=== PATIENT | female | born 1960 | race Caucasian/White ===

== ENCOUNTER → 2017-01-10 | Outpatient (CLI) | payer OTHER | LOC: FIMAGING 11:10 | PROVIDERS: ATTEND Obstetrics & Gynecology | DX: Z12.31 Encounter for screening mammogram for malignant neoplasm of breast (principal) | CPT/HCPCS: G0202 ==

== ENCOUNTER 2017-12-05 17:41 | Inpatient (IN) | payer OTHER ==
--- NOTE | 2017-12-05 18:15 | EDPHY ---
H & P Stated Complaint: abd bloating, dizziness, low hct (blood drawn today) Time Seen by Provider: 12/05/17 17:53 HPI/ROS: CHIEF COMPLAINT: Dizzy, fatigue, anemia HISTORY OF PRESENT ILLNESS: 57-year-old female generally healthy, history of chronic headaches for which she takes 3 daily Excedrin. She saw her primary care provider 2 weeks ago for complaints of fatigue, blood work performed that time prior to go on a trip to [facility]. While in [facility] she received a phone call for PCP informing her of her anemia and is recommended when she return to go to the ER for evaluation. She returned from her trip to [facility] last evening, saw her PCP this morning had repeat hemogram which showed continued anemia, recheck 6 hr later and had dropped. Recommend she go to the ER for evaluation, transfusion, admission. While in [facility] she go she did not experience illness. She does report intermittent episodes of melena and hematochezia. Painless defecation. She notes ongoing fatigue, dizziness, sleeping more than usual, dyspnea, for the past several weeks. No chest pain. No abdominal pain. No back pain. No hematuria. No gingival bleeding. PRIMARY CARE PROVIDER: Dr. Marcos Brown REVIEW OF SYSTEMS: A ten point review of systems was performed and is negative with the exception of the items mentioned in the HPI PAST MEDICAL & SURGICAL HISTORY: Chronic headache SOCIAL HISTORY:, 2 children. PHYSICAL EXAM (Prior to examination, patient consented to physical exam, hands were washed and my usual and customary physical exam procedures followed) 1) GENERAL: Well-developed, well-nourished, alert and oriented. Pallorous answering questions appropriately 2) HEAD: Normocephalic, atraumatic 3) HEENT: Pupils equal, round, reactive to light bilaterally. Sclera anicteric. Nasopharynx, oropharynx, clear, no lesions. Pallorous mucous membranes 4) NECK: Full range of motion, no meningeal signs. 5) LUNGS: Clear auscultation bilaterally, no wheezes, no rhonchi, no retractions. 6) HEART: Regular rate and rhythm, no murmur, no heave, no gallop. 7) ABDOMEN: No guarding, no rebound, no focal tenderness, negative McBurney's, negative Sanchez's, negative Rovsing's, negative peritoneal sign, 8) MUSCULOSKELETAL: Moving all extremities, no focal areas of tenderness, no obvious trauma. No peripheral edema or discoloration. 9) BACK: No CVA tenderness, no midline vertebral tenderness, no fluctuance, no step-off, no obvious trauma, no visual or palpable abnormality. 10) SKIN: No rash, no petechiae. 11) RECTAL (with tech Jessica at bedside): Multiple non thrombosed external hemorrhoid, Hard stool in rectal vault, brown stool on glove. DIFFERENTIAL DIAGNOSIS: In no particular include but limited to upper GI bleed , lower GI bleed, hemorrhoids, anemia - Personal History Current Tetanus/Diphtheria Vaccine: Unsure Current Tetanus Diphtheria and Acellular Pertussis (TDAP): Unsure - Medical/Surgical History Hx Asthma: No Hx Chronic Respiratory Disease: No Hx Diabetes: No Hx Cardiac Disease: No Hx Renal Disease: No Hx Cirrhosis: No Hx Alcoholism: No Hx HIV/AIDS: No Hx Splenectomy or Spleen Trauma: No Other PMH: Hemorroids - Social History Smoking Status: Former smoker Constitutional: Initial Vital Signs Temperature (C) 36.7 C 12/05/17 17:47 Heart Rate 86 12/05/17 17:47 Respiratory Rate 16 12/05/17 17:47 Blood Pressure 120/77 12/05/17 17:47 O2 Sat (%) 96 12/05/17 17:47 O2 Delivery Mode Room Air Allergies/Adverse Reactions: codeine Allergy (Verified 12/05/17 19:23) Rash, Itching Home Medications: Medication Instructions Recorded Acetaminophen/ASA/Caffeine 3 - 4 each PO DAILY 12/05/17 [Excedrin Tablet (*)] Albuterol [Ventolin Hfa Inhaler] 2 puffs IH Q4 PRN 12/05/17 Bisacodyl [Bisacodyl (*)] 5 mg PO TID PRN 12/05/17 Cetirizine HCl/Pseudoephedrine 1 each PO DAILY PRN 12/05/17 [Zyrtec-D Tablet] Cetirizine [ZyrTEC 10 mg (*)] 20 mg PO HS 12/05/17 FLUoxetine [Prozac 20 MG (*)] 40 mg PO DAILY 12/05/17 Herbals/Supplements -Info Only 1 ea PO DAILY 12/05/17 Medical Decision Making - Diagnostics Imaging Results: Imaging Impressions Chest X-Ray 12/05/17 18:12 Impression: No acute pulmonary disease. ED Course/Re-evaluation: 6:12 p.m.: Medical records reviewed the patient. Discussed case with secondary supervising physician Dr. Reeder in the ER. Plan will be admission, type and screen, transfusion, evaluation for possible GI bleed. Patient has history of daily Excedrin use for chronic headache. 6:50 p.m.: Consultation with hospitalist Dr. Jurado who will admit patient for symptomatic anemia, possible GI bleed - Data Points Laboratory Results: Laboratory Results 12/05/17 18:00 12/05/17 18:00 12/05/17 12/05/17 12/05/17 18:00 18:00 18:00 WBC RBC Hgb Hct MCV MCH MCHC RDW Plt Count MPV Neut % (Auto) Lymph % (Auto) Upson % (Auto) Eos % (Auto) Baso % (Auto) Nucleat RBC Rel Count Absolute Neuts (auto) Absolute Lymphs (auto) Absolute Monos (auto) Absolute Eos (auto) Absolute Basos (auto) Absolute Nucleated RBC Immature Gran % Immature Gran # Platelet Estimate Hypochromasia Microcytic Cells Smear Review By Sodium 136 mEq/L mEq/L (135-145) Potassium 3.3 mEq/L mEq/L (3.3-5.0) Chloride 99 mEq/L mEq/L (97-110) Carbon Dioxide 27 mEq/l mEq/l (22-31) Anion Gap 10 mEq/L mEq/L (8-16) BUN 14 mg/dL mg/dL (7-23) Creatinine 0.8 mg/dL mg/dL (0.6-1.0) Estimated GFR > 60 Glucose 90 mg/dL mg/dL (70-100) Calcium 9.7 mg/dL mg/dL (8.5-10.4) Troponin I < 0.012 ng/mL ng/mL (0.000-0.034) TSH 3.600 uIU/mL uIU/mL (0.465-4.680) Stool Occult Bld Scrn NEGATIVE (NEGATIVE) Patient ABO/Rh O POSITIVE Antibody Screen NEGATIVE Crossmatch IS Only See Detail 12/05/17 18:00 WBC 6.46 10^3/uL 10^3/uL (3.80-9.50) RBC 3.68 10^6/uL L 10^6/uL (4.18-5.33) Hgb 6.3 g/dL L g/dL (12.6-16.3) Hct 24.3 % L % (38.0-47.0) MCV 66.0 fL L fL (81.5-99.8) MCH 17.1 pg L pg (27.9-34.1) MCHC 25.9 g/dL L g/dL (32.4-36.7) RDW 20.0 % H % (11.5-15.2) Plt Count 425 10^3/uL H 10^3/uL (150-400) MPV 9.5 fL fL (8.7-11.7) Neut % (Auto) 59.4 % % (39.3-74.2) Lymph % (Auto) 28.0 % % (15.0-45.0) Upson % (Auto) 8.4 % % (4.5-13.0) Eos % (Auto) 3.4 % % (0.6-7.6) Baso % (Auto) 0.6 % % (0.3-1.7) Nucleat RBC Rel Count 0.0 % % (0.0-0.2) Absolute Neuts (auto) 3.84 10^3/uL 10^3/uL (1.70-6.50) Absolute Lymphs (auto) 1.81 10^3/uL 10^3/uL (1.00-3.00) Absolute Monos (auto) 0.54 10^3/uL 10^3/uL (0.30-0.80) Absolute Eos (auto) 0.22 10^3/uL 10^3/uL (0.03-0.40) Absolute Basos (auto) 0.04 10^3/uL 10^3/uL (0.02-0.10) Absolute Nucleated RBC 0.00 10^3/uL 10^3/uL (0-0.01) Immature Gran % 0.2 % % (0.0-1.1) Immature Gran # 0.01 10^3/uL 10^3/uL (0.00-0.10) Platelet Estimate INCREASED H (ADEQ) Hypochromasia 2+ H Microcytic Cells 2+ H Smear Review By Pending Sodium Potassium Chloride Carbon Dioxide Anion Gap BUN Creatinine Estimated GFR Glucose Calcium Troponin I TSH Stool Occult Bld Scrn Patient ABO/Rh Antibody Screen Crossmatch IS Only Medications Given: Discontinued Medications Pantoprazole Sodium (Protonix) 40 mg IVP EDNOW ONE Stop: 12/05/17 18:31 Last Admin: 12/05/17 18:42 Dose: 40 mg Departure - Departure Disposition: [facility] Inpatient Acute Clinical Impression: Microcytic anemia Condition: Fair
[2017-12-05] MEDS ORDERED: PANTOPRAZOLE SODIUM 40 MG VIAL IVP ONE ×2 (18:16→18:30)
[2017-12-05 18:30] LABS: PLATELET COUNT 425 10^3/uL (150-400)
[2017-12-05] MEDS ORDERED: ALBUTEROL 60 PUFFS/8 GM MDI IH PRN (19:48)
[2017-12-05] MEDS ORDERED: Cetirizine Hcl/Pseudoephedrine [Zyrtec-D Tablet] PO PRN (19:48)
[2017-12-05] MEDS ORDERED: BISACODYL 5 MG EC TAB PO PRN (19:48)
[2017-12-05] MEDS ORDERED: ONDANSETRON 4 MG/2 ML VIAL IVP PRN (20:07)
[2017-12-05] MEDS ORDERED: ONDANSETRON DISINTEGRATING 4 MG TAB PO PRN (20:07)
[2017-12-05] MEDS ORDERED: NS 1,000 ML IV SCH (20:15)
[2017-12-05] MEDS: CETIRIZINE 10 MG TAB PO SCH (21:19)
--- NOTE | 2017-12-05 23:16 | PDGENHP ---
History and Physical History and Physical: CC: Weakness and fatigue, sent in because of anemia HISTORY: This patient is sent in for evaluation and treatment of severe anemia , presumably iron deficient, however her story is a bit complicated. Most recently she has begun to feel very weak tired fatigued with some significant exertional dyspnea. She had been in to see Dr. Brown in late October at which time a CBC was done among other blood tests but she left the country for a trip to [facility] just after the tests were drawn. He apparently contacted her there and she was not having worsening symptoms so she elected to wait until return here for evaluation. She was seen in clinic by [address] Brown's partners today who sent her here for further assessment. Her hemoglobins have been running in the range of 6 since tested in late October. The patient tells me that she has long been anemic and that she has attributed this to bleeding from hemorrhoids and she has had intermittent hemorrhoidal bleeding for many years. Reviewing her chart I see that she had a hemoglobin of 12 in approximately 2011 and then in June of 2016 had a hemoglobin of 10.5 but she was normocytic at that time. In addition to rectal bleeding the patient also mentions that she has a very poor appetite and her corroborates that here. She primarily eats a lot of carbohydrates including grains and sweets, is primarily vegetarian and eats occasional fish but no other meats, and eats very few vegetables, only occasionally having a salad. She does take a daily vitamin tab. She does not believe it has any iron in it. She notes that over the last few months she has been having more blood that she thought was again hemorrhoidal bleeding. She denies any kind of abdominal pain, rectal pain, weight loss, fevers, extraintestinal inflammatory type symptoms. There is no family history of bowel disease in the way of autoimmune , ulcers, tumors. It is also notable that the patient does take 3 Excedrin tablets daily because of headaches. This is been going on for quite some time. She has been eating okay with good appetite no nausea no epigastric pain. Notably she did have a colonoscopy a year and half ago because of the rectal bleeding and she reports remembering that it did not show any concerning abnormalities. ROS: A comprehensive 10 system review revealed no other significant findings PAST MEDICAL HISTORY: Anemia, normocytic, not really thoroughly assessed Chronic headaches Back pain Clavicle fracture Depression FAMILY MEDICAL HISTORY: No GI disorders that she is aware of, no anemia SOCIAL HISTORY: lives with her and children Recent travel the [facility] Former smoker quit 25 years ago, no significant alcohol use no street drugs MEDICATIONS: The patients list has been reconciled by our clinical pharmacist in the EMR. I have reviewed the list and ordered appropriate medicines. PHYSICAL EXAMINATION: Vital Signs: All normal without fever Retail Training Manager: Sinus Examination: General: alert, oriented, good mentation, relaxed Skin: warm, dry, significant pallor, no rash or other concerning lesions HEENT: normal Neck: no mass or jvd Resps: relaxed Lungs: clear breath sounds Heart: regular, no murmur Abdomen: soft, nondistended, nontender, +BS, no mass Upper Extremities: normal Lower Extremities: no edema, warm No Bleeding or bruising Neurologic: normal speech/language, normal php software engineer, no focal weakness IV site: looks normal LABORATORY DATA: Hemoglobin 6, hematocrit 24% Basic metabolic panel and troponin are normal RADIOLOGY STUDIES: Chest x-ray done in the ER is two views, I did review the images and to me this appears as a normal PA and lateral chest x-ray ASSESSMENT: # SEVERE MICROCYTIC ANEMIA, PRESUMABLY IRON DEFICIENCY, SYMPTOMATIC # ONGOING GI BLEEDING, CONCERN FOR POSSIBLE UPPER GI BLEEDING WITH CHRONIC USE OF NSAIDS, BUT COULD BE BLEEDING FROM ANYWHERE IN THE GUT # DIET PROBABLY INCLUDES VERY LITTLE IRON INTAKE # NO SPECIFIC SYMPTOMS TO SUGGEST A MALABSORPTION DISORDER PLANS: * will start with observation status in the hospital, but could potentially need longer stay requiring changed inpatient * Transfusion of 1 unit red blood cells, recheck hemoglobin hematocrit after that * Will begin some IV iron therapy * I have ordered iron and TIBC and ferritin studies as well as reticulocyte count * Gastroenterology service has been contacted by the ER staff and they will see her tomorrow * I have made her NPO after midnight in case there able to get her on schedule for an upper endoscopy and possible colonoscopy if nothing seen there * Discontinue NSAIDs at this time * I have ordered some Protonix for acid protection * DVT prophylaxis is mechanical only due to her GI bleeding * I reviewed dietary issues with the patient and her , I think she could have a better balanced diet for a number of concerns I have reviewed the patient's case in detail with Benjamin Zavala of the ER I have reviewed the patient's past medical records as part of this assessment, including outpatient clinic records, laboratory values, previous hospital records
[2017-12-05] MEDS: ZOLPIDEM TARTRATE 5 MG TAB PO PRN (23:22)
[2017-12-05] MEDS: SODIUM FERRIC GLUCONAT/SUCROSE 125 MG in NS 100 ML IV SCH (23:47)
[2017-12-06] MEDS ORDERED: PANTOPRAZOLE SODIUM 40 MG VIAL IVP SCH (08:00)
[2017-12-06] MEDS: FLUoxetine 20 MG CAP PO SCH (08:03)
[2017-12-06] MEDS: SODIUM FERRIC GLUCONAT/SUCROSE 125 MG in NS 100 ML IV SCH (08:03)
--- NOTE | 2017-12-06 11:54 | GCON ---
[f rep st] CONSULTATION DATE OF CONSULTATION: 12/06/2017 CONSULTING PHYSICIAN: Yoel Jurado MD REASON FOR CONSULTATION: Iron-deficiency anemia. CHIEF COMPLAINT: Fatigue. HISTORY OF PRESENT ILLNESS: The patient is a 57-year-old female with a history of NSAID use, chronic hematochezia who presents to [facility] with complaints of increasing weakness and fatigue. The patient has had complaints of weakness since October of this year. She states it got progressively worse and she had significant complaints of fatigue. She noticed her symptoms were exacerbated when she was exerting herself and did notice some shortness of breath at that time. She denies any alleviating factors. She has had a history of iron deficiency anemia for years and it was suspected this was secondary to her hemorrhoids. She does have blood on wiping and in her stools several days each week. She does not think this is getting worse. She has been taking Excedrin at least 3-4 days a week for chronic headaches. She did have a prior colonoscopy by my partner, Dr. Douglas, on 09/06/2016, at that time no polyps or mass lesion was seen. She denies any abdominal pain, dysphagia, nausea, or vomiting. She has had complaints of diarrhea. I am being asked by Dr. Jurado to see Shantell in consultation regarding her iron deficiency anemia. PAST MEDICAL HISTORY: 1. Chronic headaches. 2. Iron deficiency anemia. 3. Hemorrhoids. 4. Depression. PAST SURGICAL HISTORY: Suspected hemorrhoidectomy due to prolapse. FAMILY HISTORY: No history of colon cancer or polyps. ALLERGIES: Codeine. SOCIAL HISTORY: . Two children. Former smoker. MEDICATIONS: Fluoxetine, Zyrtec. REVIEW OF SYSTEMS: A 14-point comprehensive review of systems was asked. Pertinent positives and negatives. PHYSICAL EXAM: VITAL SIGNS: Blood pressure 114/64, respirations 14, temperature 36.9. GENERAL: Awake, alert, oriented x3. No distress. HEENT: Negative. Moist mucosa. NECK: No JVD. CARDIOVASCULAR: Regular rhythm positive S1, S2. No murmurs or gallops appreciated. LUNGS: Bilateral wheezes and rhonchi. ABDOMEN: Soft, nontender, nondistended. Positive bowel sounds. No guarding or rebound. EXTREMITIES: No edema. NEUROLOGIC: 2 through 12 grossly intact. PSYCH: Normal affect. MUSCULOSKELETAL: No joint effusions. LAB WORK: Hemoglobin 6.9, hematocrit 24.8, platelets 425. Iron 14, TIBC 49, iron sat 3, ferritin 3, sodium 138, potassium 3.3, chloride 99, bicarb 27, BUN 14, creatinine 0.8. ASSESSMENT AND PLAN: 1. Anemia- iron deficient. Taking NSAIDs. Etiology? Peptic ulcer disease versus hemorrhoidal versus other? At this time, recommend to proceed with upper endoscopy to delineate the cause of her symptoms. She did have a colonoscopy last year. The risks, benefits, and alternatives of the procedure were discussed in great detail with the patient. The risks of infection, bleeding , perforation, and sedation were discussed. If EGD unrevealing, would consider colonoscopy which can be done as an outpatient. 2. Chronic headaches. Thank you for this consultation. /[id number]/MODL MABEL
[2017-12-06] MEDS ORDERED: LR 1,000 ML IV ONE (12:00)
[2017-12-06] MEDS ORDERED: ONDANSETRON 4 MG/2 ML VIAL IVP PRN (12:15)
[2017-12-06] MEDS ORDERED: NALOXONE HCL 0.4 MG/ML INJ IVP PRN (12:15)
[2017-12-06] MEDS ORDERED: ALBUTEROL 3 ML DEYVIAL IH PRN (12:15)
[2017-12-06] MEDS ORDERED: PROMETHAZINE HCL 25 MG/ML INJ IVP PRN (12:15)
[2017-12-06] MEDS ORDERED: fentaNYL 100 MCG/2 ML INJ IVP PRN (12:15)
[2017-12-06] MEDS ORDERED: oxyCODONE IR 5 MG TAB PO PRN (12:15)
[2017-12-06] MEDS ORDERED: LABETALOL HCL 5 MG/ML 20 ML MDV IVP PRN (12:15)
[2017-12-06] MEDS ORDERED: HYDROCODONE/APAP 5/325 TAB PO PRN (12:15)
[2017-12-06] MEDS ORDERED: DEXAMETHASONE 4 MG/ML VIAL IVP PRN (12:15)
[2017-12-06] MEDS ORDERED: LR 500 ML IV PRN (12:15)
--- NOTE | 2017-12-06 12:15 | PDANEPAE ---
ANE History of Present Illness anemia s/f EGD with biopsy ANE Past Medical History - Cardiovascular History Hx Hypertension: No Hx Arrhythmias: No Hx Chest Pain: No Hx Coronary Artery / Peripheral Vascular Disease: No Hx CHF / Valvular Disease: No Hx Palpitations: No - Pulmonary History Hx COPD: No Hx Asthma/Reactive Airway Disease: No Hx Recent Upper Respiratory Infection: No Hx Oxygen in Use at Home: No Hx Sleep Apnea: No Sleep Apnea Screening Result - Last Documented: Negative - Neurologic History Hx Cerebrovascular Accident: No Hx Seizures: No Hx Dementia: No - Endocrine History Hx Diabetes: No - Renal History Hx Renal Disorders: No - Liver History Hx Hepatic Disorders: No - Neurological & Psychiatric Hx Hx Neurological and Psychiatric Disorders: Yes Neurological / Psychiatric History Comment: PROZAC - ANXIETY - Cancer History Hx Cancer: No - Congenital Disorder History Hx Congenital Disorders: No - GI History Hx Gastrointestinal Disorders: Yes Gastrointestinal History Comment: anemia - Other Health History Other Health History: NEG - Chronic Pain History Chronic Pain: No - Surgical History Prior Surgeries: C SECTION X2. COLLARBONE W/BONE GRAFTING & PLATE ANE Review of Systems Review of Systems: - Exercise capacity Exercise capacity: >=4 METS (limited by anemia now) ANE Patient History - Allergies Allergies/Adverse Reactions: codeine Allergy (Verified 12/05/17 19:23) Rash, Itching - Home Medications Home medications: home medication list seen and reviewed Home Medications: Acetaminophen/ASA/Caffeine [Excedrin Tablet (*)] 3 - 4 each PO DAILY 12/05/17 [ Last Taken 12/05/17] Albuterol [Ventolin Hfa Inhaler] 2 puffs IH Q4 PRN 12/05/17 [Last Taken 12/03/17 ] Bisacodyl [Bisacodyl (*)] 5 mg PO TID PRN 12/05/17 [Last Taken 11/25/17] Cetirizine HCl/Pseudoephedrine [Zyrtec-D Tablet] 1 each PO DAILY PRN 12/05/17 [ Last Taken 12/05/17] Cetirizine [ZyrTEC 10 mg (*)] 20 mg PO HS 12/05/17 [Last Taken 12/04/17] FLUoxetine [Prozac 20 MG (*)] 40 mg PO DAILY 12/05/17 [Last Taken 12/05/17] Herbals/Supplements -Info Only 1 ea PO DAILY 12/05/17 [Last Taken Unknown] - NPO status NPO Status: no food or drink >8 hours NPO Since - Liquids (Date): 12/06/17 NPO Since - Liquids (Time): 00:00 NPO Since - Solids (Date): 12/06/17 NPO Since - Solids (Time): 00:00 - Anes Hx Anes Hx: no prior problems - Smoking Hx Smoking Status: Former smoker Marijuana use: No - Alcohol Use Alcohol Use: Rarely - Family Anes Hx Family Anes Hx: none Family Hx Anesthesia Complications: NEG ANE Labs/Vital Signs - Labs Result Diagrams: 12/06/17 05:30 12/05/17 18:00 - Vital Signs Blood Pressure: 95/75 Heart Rate: 78 Respiratory Rate: 16 O2 Sat (%): 93 Height: 170.18 cm Weight: 58.967 kg ANE Physical Exam - Airway Neck exam: FROM Mallampati Score: Class 2 Mouth exam: normal dental/mouth exam - Pulmonary Pulmonary: no respiratory distress - Cardiovascular Cardiovascular: regular rate and rhythym - ASA Status ASA Status: II, E ANE Anesthesia Plan Anesthesia Plan: GA with mask Total IV Anesthesia: Yes Urgent/Emergent Case: Terra lincoln completed preop but documented later for safe timely pt care
--- NOTE | 2017-12-06 12:33 | GIREPORT ---
[facility] Surgical Services - Endoscopy Department Patient Name: Shantell Tirado Procedure Date: 12/06/2017 11:45 AM Patient Type: Inpatient Attending MD/ ER Physician: Beau Olson MD Procedure: Upper GI endoscopy Indications: Iron deficiency anemia, Diarrhea Patient Profile: 57 year old female presents for evaluation of iron deficiency anemia an d diarrhea. Providers: Beau Olson MD Medicines: Monitored Anesthesia Care Complications: No immediate complications. Estimated blood loss: Minimal. Description of Procedure: After obtaining informed consent, the endoscope was passed under direct vision. Throughout the procedure, the patient's blood pressure, pulse, and oxygen saturations were monitored continuously. The Endoscope was intro duced through the mouth, and advanced to the second part of duodenum. [facility] GI endoscopy was accomplished without difficulty. The patient tolerated th e procedure well. Findings: The examined esophagus was normal. A hiatal hernia was present. Two superficial gastric ulcers with no stigmata of bleeding were found in the gastric antrum. The largest lesion was 2 mm in largest dimension. Patchy mildly erythematous mucosa was found in the gastric body and in the gastric antrum. Biopsies were taken with a cold forceps for histology. The examined duodenum was normal. Biopsies for histology were taken wit h a cold forceps for evaluation of celiac disease. Estimated Blood Loss: Estimated blood loss was minimal. Post Op Diagnosis: - Normal esophagus. - Hiatal hernia. - Gastric ulcers with no stigmata of bleeding. - Erythematous mucosa in the gastric body and antrum. Biopsied. - Normal examined duodenum. Biopsied. - Etiology? The ulcers were small and doubt can be causing this signficant of anemia. Recommend colonoscopy and can be done as outpatie nt and if that is negative than consider capsule endoscopy. Recommendation: - Return patient to hospital [facility] for ongoing care. - Resume previous diet. - Continue present medications. - Await pathology results. - Use a proton pump inhibitor PO daily. - Outpatient colonoscopy? Will discuss with patient. - No aspirin, ibuprofen, naproxen, or other non-steroidal anti-inflamma tory drugs. - Thank you for allowing me to participate in the care of your patient. Attending Participation: I personally performed the entire procedure. Beau Olson MD Beau Olson MD 12/06/2017 12:33:18 PM This report has been signed electronicallyBeau Olson MD Number of Addenda: 0 Note Initiated On: 12/06/2017 11:45 AM [email or web address]}
--- NOTE | 2017-12-06 13:49 | POSTANESTH ---
Post Anesthetic Evaluation Cardiovascular Status: Normal, Stable Respiratory Status: Normal, Stable Level of Consciousness/Mental Status: Can Participate in Eval Pain Control: Adequate, Prn Tx Ordered Nausea/Vomiting Control: Adequate, Prn Tx Ordered Complications Possibly Related to Anesthesia: None Noted
--- NOTE | 2017-12-06 15:59 | HOSPPROG ---
Hospitalist Progress Note Assessment/Plan: #Microcytic anemia: EGD showed small gastric ulcer, biopsy pending. PPI. Rec outpatient colonoscopy -IV iron. Transfuse another unit blood. No NSAIDs #SOB: with exercise. Due to severe anemia. Stable on RA #Migraines: stop NSAIDs #Diet: regular #DVT ppx: SCDs Warrants inpatient admission for blood transfusion, serial labs Subjective: severe SHAH this morning. No abd pain Objective: Vital Signs Temp Pulse Resp BP Pulse Ox 37.2 C 80 16 96/55 L 96 12/06/17 15:43 12/06/17 15:43 12/06/17 15:43 12/06/17 15:43 12/06/17 15:43 Laboratory Results 12/06/17 05:30 12/05/17 12/06/17 12/07/17 05:59 05:59 05:59 Intake Total 0 240 Balance 0 240 - Time Spent With Patient Time Spent with Patient: greater than 35 minutes Time Spent with Patient: Greater than 35 minutes spent on this patients care, greater than 50% of time spent counseling, educating, and coordinating care regarding the above mentioned plan. - Physical Exam Constitutional: no apparent distress Eyes: PERRL, pale conjunctiva Ears, Nose, Mouth, Throat: moist mucous membranes Cardiovascular: regular rate and rhythym Respiratory: no respiratory distress Gastrointestinal: normoactive bowel sounds, No tenderness Genitourinary: no bladder fullness Skin: warm Musculoskeletal: full muscle strength Neurologic: AAOx3, CN II-XII Intact Psychiatric: interacting appropriately ICD10 Worksheet Patient Problems: Problems Problem Status Onset Microcytic anemia Acute
[2017-12-06] MEDS ORDERED: PEG 3350/NA SULF,BICARB,CL/KCL (GAVILYTE-G) 4000 ML BTL PO ONE (17:20)
--- NOTE | 2017-12-06 17:22 | PDMN ---
Medical Necessity Medical necessity: C/M review: Sharonda meets INPT crtieria under MCG M-35 Anemia, iron deficiency or unspecified: Acute and persistent severe microcytic anemia Hgb 6.3, Hct 24.3, increased to Hgb 6.9, Hct 24.8 after 1 unit PRBCs Iron 14.0 L, Iron saturation 3 L, Ferritin 3.0 L, shortness of breath, requiring 12/06/2017 EGR with biopsy which showed small gastric ulcer, 2nd unit PRBC's thus far, severe headache 6 AM, ongoing IV iron QD, srrial Hgb / Hct, stop NSAIDS, comorbid migraines which patient took NSAIDS for. MD anticipates > 2 MN LOS for ongoing med nec for eval and TX of above.
--- NOTE | 2017-12-06 18:02 | ASMTCMCOM ---
CM Note CM Note Notes: Pt lives at home with and children, normally independent. DC needs unclear, CM w/f. DC Plan: TBD Date Signed: 12/06/2017 06:02 PM Electronically Signed By:Maday Reyes RN
[2017-12-06] MEDS: CETIRIZINE 10 MG TAB PO SCH (19:48)
[2017-12-07] MEDS: ACETAMINOPHEN 325 MG TAB PO PRN ×2 (01:01→12:26)
[2017-12-07] MEDS: ZOLPIDEM TARTRATE 5 MG TAB PO PRN (01:01)
[2017-12-07] MEDS: SODIUM FERRIC GLUCONAT/SUCROSE 125 MG in NS 100 ML IV SCH (08:05)
[2017-12-07] MEDS ORDERED: PANTOPRAZOLE SODIUM 40 MG TAB PO SCH (09:00)
[2017-12-07] MEDS ORDERED: MIDAZOLAM 2 MG/2 ML VIAL ONE (09:14)
[2017-12-07] MEDS ORDERED: fentaNYL 100 MCG/2 ML INJ ONE (09:14)
--- NOTE | 2017-12-07 10:10 | HOSPPROG ---
Hospitalist Progress Note Assessment/Plan: #Microcytic/iron deficiency anemia: EGD showed small gastric ulcer, biopsy pending. PPI. -IV iron. H/H stable after 2 units RBCs. No NSAIDs -colonoscopy today #SOB: with exercise. Due to severe anemia. Stable on RA #Migraines: stop NSAIDs #Diet: regular #DVT ppx: SCDs DC today. See dc summary Subjective: colonoscopy this morning Objective: Vital Signs Temp Pulse Resp BP Pulse Ox 37 C 75 21 H 107/72 94 12/07/17 08:00 12/07/17 08:00 12/07/17 09:21 12/07/17 09:21 12/07/17 09:21 Laboratory Results 12/07/17 04:55 12/06/17 12/07/17 12/08/17 05:59 05:59 05:59 Intake Total 660 Balance 660 - Physical Exam Constitutional: no apparent distress, other (more color to face) Eyes: PERRL Ears, Nose, Mouth, Throat: moist mucous membranes Cardiovascular: regular rate and rhythym Respiratory: no respiratory distress Gastrointestinal: normoactive bowel sounds Genitourinary: no bladder fullness Skin: warm Musculoskeletal: full muscle strength Neurologic: AAOx3, CN II-XII Intact Psychiatric: interacting appropriately ICD10 Worksheet Patient Problems: Problems Problem Status Onset Microcytic anemia Acute
--- NOTE | 2017-12-07 10:13 | GIREPORT ---
[facility] Surgical Services - Endoscopy Department Patient Name: Shantell Tirado Procedure Date: 12/07/2017 9:13 AM Patient Type: Inpatient Attending MD/ ER Physician: Beau Olson MD Procedure: Colonoscopy Indications: Chronic diarrhea, Iron deficiency anemia Patient Profile: 57 year old female presents for evaluation of iron deficiency anemia/diarrhea. Providers: Beau Olson MD Medicines: Fentanyl 150 micrograms IV, Midazolam 7 mg IV Complications: No immediate complications. Estimated blood loss: None. Description of Procedure: After obtaining informed consent, the scope was passed under direct vis ion. Throughout the procedure, the patient's blood pressure, pulse, and oxyg en saturations were monitored continuously. The Colonoscope with irrigatio n channel was introduced through the anus and advanced to the terminal il eum. The colonoscopy was performed without difficulty. The patient tolerated the procedure well. The quality of the bowel preparation was adequate to identify polyps 6 mm and larger in size. The ileocecal valve, appendice al orifice, and rectum were photographed. Moderate Sedation: Moderate (conscious) sedation was administered by the endoscopy nurse bharath ysed supervised by the endoscopist. The patient's oxygen saturation, heart r ate, blood pressure and response to care were monitored. Total physician intraservice time was 47 minutes. Findings: The perianal exam findings include non-thrombosed internal hemorrhoids. The colon (entire examined portion) appeared normal. Biopsies for histology were taken with a cold forceps for evaluation of microscopic colitis. Estimated Blood Loss: Estimated blood loss was minimal. Post Op Diagnosis: - Non-thrombosed internal hemorrhoids found on perianal exam. - The entire examined colon is normal. - Biopsies were taken with a cold forceps for evaluation of microscopic colitis. Recommendation: - Return patient to hospital [facility] for ongoing care. - Await pathology results. - Advance diet as tolerated. - Continue present medications. - Await biopsy results. - Suspect diarrhea from microscopic colitis. Recommend Entocort 9mg a d ay (comes in 3mg tablets) - To visualize the small bowel, perform video capsule endoscopy at appointment to be scheduled as outpatient - Due to prep, recommend repeat colonosocpy on prior recs (from last colonoscopy) - From GI perspective, OK to discharge home today. - GI will sign off. - Thank you for the allowing me to participate in the care of your daryn ent. Attending Participation: I personally performed the entire procedure. Beau Olson MD Beau Olson MD 12/07/2017 10:13:26 AM This report has been signed electronicallyBeau Olson MD Number of Addenda: 0 Note Initiated On: 12/07/2017 9:13 AM Total Procedure Duration Time 0 hours 35 minutes 47 seconds [email or web address]
[2017-12-07] MEDS: FLUoxetine 20 MG CAP PO SCH (11:00)
[2017-12-07 11:14] VITALS: BP 102/50
[2017-12-07] MEDS ORDERED: diphenhydrAMINE 25 MG CAP PO PRN (12:03)
--- NOTE | 2017-12-07 21:05 | GDS ---
[f rep st] DISCHARGE SUMMARY DISCHARGE DIAGNOSES: 1. Acute blood loss/iron deficiency anemia. 2. Microscopic colitis. 3. Shortness of breath. HISTORY OF PRESENT ILLNESS: A pleasant 57-year-old female was sent in from her PCP for evaluation of severe anemia. Most recently, she began feeling very tired and weak with some exertional dyspnea, especially with exercise. She saw Dr. Brown late October at which time CBC was done, but left the country just after tests were drawn. She was seen again in clinic on 12/04, and re-evaluated. Her hemoglobins have been running in the range of 6. Patient said she has been anemic a long time and attributed to bleeding from hemorrhoids that she has had for many years. HOSPITAL COURSE: 1. Microcytic/iron deficiency anemia: endoscopy showed small nonbleeding gastric ulcers; biopsies are pending. Negative colonoscopy. Transfused 2 units of blood and dose of IV iron with stable H/H at discharge. Gastroenterology will call to make appointment for capsule endoscopy and follow up in the clinic. 2. Microcytic colitis: Dr. Olson recommended Entocort 9 mg for 30 days. 3. Shortness of breath: due to acute anemia. This is much improved after blood transfusion. 4. Migraines. Advised not to use any NSAIDs in the future. DISPOSITION: Patient is stable for discharge home with family. MEDICATIONS: Entocort 9 mg a day for 30 days. No NSAIDs FOLLOW UP: 1. Dr. Olson. 2. Capsule endoscopy. LABORATORY PENDING: Gastric and colonic biopsies. PHYSICAL EXAMINATION: VITAL SIGNS: Today, temperature 36.9, blood pressure 102 /50, heart rate , respirations 12, 94% on room air. GENERAL: She has more color, smiling. HEENT: PERRLA. Moist mucous membranes. CV: Regular rate and rhythm. LUNGS: Clear. ABDOMEN: Soft, nontender. : No Lewis musculoskeletal 5/5 upper, lower extremity strength. NEURO: 2 through 12 intact. TIME SPENT ON DISCHARGE: Greater than 30 minutes at bedside with patient explaining followup plan, new medications, and coordinating discharge. /[id number]/MODL MTDD
== END 2017-12-07 12:55 | disposition home or self-care (01) | DRG 812 ==
LOC: F3E 20:07 → OBSVTOIN 12-06 15:55
PROVIDERS: ADMIT Internal Medicine; ATTEND Internal Medicine
PROC: 30233N1 Transfusion of Nonautologous Red Blood Cells into Peripheral Vein, Percutaneous Approach (ICD-10-PCS; 2017-12-05)
PROC: 0DB68ZX Excision of Stomach, Via Natural or Artificial Opening Endoscopic, Diagnostic (ICD-10-PCS; principal; 2017-12-06 12:00)
PROC: 0DB98ZX Excision of Duodenum, Via Natural or Artificial Opening Endoscopic, Diagnostic (ICD-10-PCS; principal; 2017-12-06 12:00)
PROC: 0DBE8ZX Excision of Large Intestine, Via Natural or Artificial Opening Endoscopic, Diagnostic (ICD-10-PCS; 2017-12-07)
DX: D62 Acute posthemorrhagic anemia (principal); K52.839 Microscopic colitis, unspecified; K25.9 Gastric ulcer, unspecified as acute or chronic, without hemorrhage or perforation; K64.8 Other hemorrhoids; R19.7 Diarrhea, unspecified; G43.909 Migraine, unspecified, not intractable, without status migrainosus; D50.9 Iron deficiency anemia, unspecified; K44.9 Diaphragmatic hernia without obstruction or gangrene; F32.9 Major depressive disorder, single episode, unspecified; Z79.1 Long term (current) use of non-steroidal anti-inflammatories (NSAID); Z87.891 Personal history of nicotine dependence
CPT/HCPCS: 96374; G0378; J2250; J2270; J2916; J3010; P9016; P9021

== ENCOUNTER → 2018-02-11 | Outpatient (CLI) | payer OTHER | LOC: FIMAGING 09:02 | PROVIDERS: ATTEND Obstetrics & Gynecology | DX: Z12.31 Encounter for screening mammogram for malignant neoplasm of breast (principal) ==

== ENCOUNTER → 2018-08-19 | Outpatient (CLI) | payer OTHER | LOC: FIMAGING 09:26 | PROVIDERS: ATTEND Family Medicine Sports Medicine | DX: D64.9 Anemia, unspecified (principal) ==